=== PATIENT | female | born 1945 | race Caucasian/White ===

== ENCOUNTER → 2018-06-06 | Outpatient (CLI) | payer OTHER | LOC: RAD 11:28 | DX: Z12.31 Encounter for screening mammogram for malignant neoplasm of breast (principal) ==

== ENCOUNTER → 2019-06-14 | Outpatient (CLI) | payer OTHER | LOC: BC 10:10 | DX: Z12.31 Encounter for screening mammogram for malignant neoplasm of breast (principal) ==

== ENCOUNTER → 2020-02-05 | Outpatient (CLI) | payer OTHER ==
[~2020-02-05] MED LIST: ASA81BEC PO; AVAPRO300 MG PO; CLOPIDOGREL75 MG PO; LIPITOR40 MG PO; PRAVACHOL40 MG PO; PROAIR HFA8.5 GM INH; SUPER THERAVIT1 EACH PO; VITAMIN D310 MC4 PO
== END ==
LOC: SJCVCIMAG 12:47
PROVIDERS: ATTEND Internal Medicine Cardiovascular Disease
DX: I34.0 Nonrheumatic mitral (valve) insufficiency (principal); R00.1 Bradycardia, unspecified; I25.10 Atherosclerotic heart disease of native coronary artery without angina pectoris; I10 Essential (primary) hypertension; R94.31 Abnormal electrocardiogram [ECG] [EKG]; I71.4 Abdominal aortic aneurysm, without rupture; R94.39 Abnormal result of other cardiovascular function study; E78.00 Pure hypercholesterolemia, unspecified; Z79.82 Long term (current) use of aspirin; Z82.49 Family history of ischemic heart disease and other diseases of the circulatory system; Z79.899 Other long term (current) drug therapy; Z87.891 Personal history of nicotine dependence

== ENCOUNTER 2020-02-19 06:23 | Observation (INO) | payer OTHER ==
[~2020-02-19] VITALS: Ht 162.6 cm; Wt 69.4 kg
[2020-02-19] VITALS (14 sets, daily range): BP systolic 126–156; BP diastolic 59–74
[2020-02-19] MEDS ORDERED: ASA81BEC PO ×2 (06:56)
[2020-02-19] MEDS ORDERED: PROAIR HFA8.5 GM INH ×2 (06:56)
[2020-02-19] MEDS ORDERED: AVAPRO300 MG PO ×2 (06:57)
[2020-02-19] MEDS ORDERED: SUPER THERAVIT1 EACH PO ×2 (06:57)
[2020-02-19] MEDS ORDERED: VITAMIN D310 MC4 PO ×2 (06:57)
[2020-02-19] MEDS ORDERED: PRAVACHOL40 MG PO ×2 (06:58)
[2020-02-19 07:38] LABS: ABSOLUTE NEUTROPHILS 2.5 thou/uL (1.4-8.2); BASOPHILS 0.9 % (0.0-2.0); EOSINOPHILS 6.9 % (0.0-3.0); HEMATOCRIT 38.7 % (37.0-47.0); LYMPHOCYTES 35.9 % (24.0-44.0); MCH 30.3 pg (26.0-34.0); MCHC 33.7 g/dL (28.0-37.0); MCV 89.9 fL (80.0-100.0); MONOCYTES 10.4 % (1.0-8.0); PLATELET COUNT 175 thou/uL (150-400); POLYS 45.9 % (36.0-66.0); RBC 4.31 mil/uL (4.20-5.00); RDW 13.6 % (10.5-14.5); WBC 5.5 thou/uL (4.0-11.0)
[2020-02-19 07:49] LABS: CALCIUM 9.4 mg/dL (8.5-10.1); CREATININE 1.2 mg/dL (0.6-1.0); POTASSIUM 3.9 mmol/L (3.5-5.1)
--- NOTE | 2020-02-19 12:13 | NUR ---
ASSUMED CARE OF PT AT APPROX 1050 FROM GANG WORKER. ADMISSION ORDERS AND INSTRUCTIONS COMPLETE. R GROIN SITE, CDI W/O HEMATOMA OR BRUISING. PT A&OX4, NO C/O PAIN. AT BEDSIDE. BEDREST COMPLETE AT 1230. WILL CONTINUE TO MONITOR AND FOLLOW POC.
--- NOTE | 2020-02-19 16:06 | EKG ---
[facility] [place] [place] [address] ELECTROCARDIOGRAM REPORT Name: BIBIANA ROJAS Room #: 201-[facility] M.R.#: [id number] Admission: 02/19/20 Attend Phys: Murphy Hernandez MD, Discharge: Date of : 41 Report #: [id number] THIS REPORT FOR: cc: Cedric Sandy Steven F. DO Couchonnal, Luis F. MD ~ THIS REPORT FOR: //name// [facility] Test Date: 2020-02-19 Test Time: 07:20:40 Pat Name: BIBIANA ROJAS Department: Room: [facility] Gender: F Rfid Developer: ЕЛЕНА : 1945 Requested By: Murphy Hernandez Order Number: [id number] MD: Heber Galicia Measurements Intervals [place] Rate: 47 P: 45 UT: 175 QRS: 53 QRSD: 90 T: 33 QT: 456 QTc: 404 Interpretive Statements Sinus bradycardia No previous ECG available for comparison Electronically Signed On 02-19-2020 16:06:34 CDT by Heber Galicia [email or web address] <ELECTRONICALLY SIGNED> By: Heber Galicia MD 02/19/20 1606 9 9 Heber Galicia MD /EPI
--- NOTE | 2020-02-19 17:51 | NUR ---
ASSUMED CARE OF PT AT SHIFT CHANGE. ASSESSMENTS CHARTED. MEDS GIVEN PER SEP. PT A&OX4, NO C/O PAIN. GROIN SITE CDI, W/O HEMATOMA OR BRUISING. WAS AT BEDSIDE MOST OF DAY. WILL CONTINUE TO MONITOR AND FOLLOW POC.
[2020-02-20 04:42] LABS: HEMATOCRIT 35.2 % (37.0-47.0); HEMOGLOBIN 12.1 gm/dL (12.0-15.0); MCH 30.7 pg (26.0-34.0); MCHC 34.3 g/dL (28.0-37.0); MCV 89.4 fL (80.0-100.0); RBC 3.93 mil/uL (4.20-5.00); RDW 13.6 % (10.5-14.5)
[2020-02-20 04:59] VITALS: BP 131/62
[2020-02-20 05:10] LABS: ALBUMIN 3.3 g/dL (3.4-5.0); CALCIUM 8.6 mg/dL (8.5-10.1); POTASSIUM 4.2 mmol/L (3.5-5.1); TOTAL BILIRUBIN 0.6 mg/dL (0.2-1.0); TROPONIN-I 0.1 ng/mL (<0.06)
--- NOTE | 2020-02-20 05:10 | NUR ---
PATIENT IS PROGRESSING IN HER CARE PLAN. VITAL SIGNS STABLE WITH PATIENT HAVING NO COMPLAINTS OF PAIN OR NAUSEA. FULLY ORIENTED, PATIENT IS ABLE TO CALL APPROPRIATELY FOR NEEDS AND PARTICIPATE IN HER CARE PLAN. PATIENT EXHIBITED STABLE BRADYCARDIA REACHING THE MID 40'S WHILE SLEEPING. BREATHING STABLE EVIDENCED BY ASSESSMENTS AND SPOT OXYGENATION CHECKS. CATH SITE CLEAN, DRY, AND INTACT WITH PULSES STRONG AND EQUAL BILATERALLY. UP AD ISAAC THROUGHOUT SHIFT, PATIENT IS STRONG AND BALANCED WHEN AMBULATING. PROBABLE DISCHARGE HOME TODAY WHICH PATIENT IS ANXIOUS FOR. CONTINUE PLAN OF CARE.
[2020-02-20 07:25] VITALS: BP 143/65
[2020-02-20] MEDS ORDERED: LIPITOR40 MG PO ×2 (07:48)
[2020-02-20] MEDS ORDERED: CLOPIDOGREL75 MG PO ×2 (07:48)
[2020-02-20 08:46] VITALS: BP 143/65
--- NOTE | 2020-02-20 10:43 | NUR ---
PT CARE ASSUMED APPROX 0700. ASSESSMENT CHARTED. PT DENIES PAIN AND SOA. VSS. UP WITH STEADY GAIT. DISCHARGING AT THIS TIME. EDUCATION DONE WITH PT AND SPOUSE BY DR NELSON AND HIS PROMOTIONAL ADVERTISING ASSISTANT, ALONG WITH CV REHAB NURSE. EDUCATION REINFORCED BY THIS NURSE WELL DISCHARGE PAPERWORK REVIEW. BOTH PT AND SPOUSE DENY QUESTIONS OR CONCERNS REGARDING POST HOSPITAL CARES. IV OUT, TELE OFF. WILL ESCORT PT OUT TIMELY.
--- NOTE | 2020-02-20 15:04 | CATHLAB ---
[facility] [address] [place] [address] INVASIVE PROCEDURE REPORT Name: BIBIANA ROJAS Room #: 201-[facility] Roderick Vigil#: [id number] Admission: 02/19/20 Attend Phys: Murphy Hernandez MD, Discharge: 02/20/20 Date of : 41 Report #: [id number] THIS REPORT FOR: cc: Cedric Sandy Steven F. DO Mancuso, Gerald M. MD [facility] ~ APPROVED REPORT Study performed: 02/19/2020 08:13:46 Patient Details The patient is a 74 year-old female Event Personnel Murphy Hernandez Autocad Technician, Spencer Valdez RN RN, Jackelin Cerrato RTR Scrub, Horace Lovell RTR Monitor Procedures Performed Art Access - R femoral artery* Left Heart Cath w/or w/o Coronaries [id number] [facility] w/wo Plasty Single RCA 702031 71054 Initial Mod Sed Same Phys/QHP Gr5y 009886 86208 Mod Sed Same Phys/QHP Ea 599971 Hemostasis w/ Mynx Indication Chest pain Procedure Narrative The Right Groin^ was infiltrated with 1% Lidocaine subcutaneous anesthesia. A PINNACLE 6FR Sheath #[id number] sheath was inserted into the RFA^. Coronary angiography was performed using coronary diagnostic catheters. The right coronary system was accessed and visualized with a JR4 catheter. The left coronary system was accessed and visualized with a JL4 catheter. The left ventricle was accessed and visualized with a PIGTAIL catheter. Left ventriculogram was performed in WHARTON projection. An aortogram of the abdominal aorta was performed. Closure device was deployed with a 6 Fr MYNXGRIP 6/7F #[id number]. The patient tolerated the procedure well and there were no complications associated with the procedure. There was no hematoma. Intraoperative Conscious Sedation Sedation start time: 837 Case end Time: 938 Fentanyl 100 mcg Versed 2 mg [facility] [address] [place] [address] INVASIVE PROCEDURE REPORT Name: BIBIANA ROJAS Room #: 201-[facility] [place] [facility]#: [id number] Admission: 02/19/20 Attend Phys: Murphy Hernandez, Discharge: 02/20/20 Date of : 41 Report #: [id number] Fluoro Time: 7.43 minutes Dose: DAP 4451.00 cGycm2 586 mGy Contrast Type and Amount: Visipaque 95 ml Hemodynamics The aortic pressure is 122/58 mmHg with a mean of 81 mmHg. The left ventricular pressure is 130/3 mmHg with a mean of mmHg. The left ventricular end diastolic pressure is 12 mmHg. PCI Technique Lesion Percutaneous coronary intervention was performed on the mid right coronary artery. A VISTA 6FR JR 4 #[id number] Guide Catheter was used to engage the ostium. A Luge Wire .014 x 182CM #[id number] Interventional Guidewire was used to cross the lesion. BALLOON DILATION A Balloon catheter Sprinter OTW 2.5 x 15 #[id number] was inserted and inflated up to 10.00atm for 58seconds. Additional Inflation: 14.00atm for 20seconds. STENT DEPLOYMENT A drug-eluting stent RESOLUTE BEN OTW 2.75 X 22 #[id number] was inserted and inflated up to 10.00atm for 32seconds. Additional Inflation: 20.00atm for 32seconds. POST STENT DEPLOYMENT BALLOON DILATION A Balloon catheter TREK NC OTW 3.0 X 12 #[id number] was inserted and inflated up to 16.00atm for 29seconds. Additional Inflation: 22.00atm for 36seconds. Conclusion #1. Successful PTCA stent of tandem high-grade lesions in the proximal mid dominant RCA. Placement of a 2 seven 5 x 22 resolute [place] postdilated to 3.1 mm in size ANA grade III flow dominant vessel. #2 left main free of disease giving rise to LAD and circumflex #3 the LAD is an eccentric proximal 70 to 75% lesion but a type I LAD that stops short of the apex diffusely diseased distally relatively small in caliber. Will follow. #4 circumflex OM nondominant but moderate in distribution 30 to 40% proximal lesion small first OM and a distal OM branch patent #5 normal ventricular size and systolic function EF 60% #6 abdominal aortic aneurysm predominantly infrarenal aortic ectasia is noted iliac arteries are not involved mild disease renal arteries mildly diseased will follow noninvasively. [facility] [address] [place] [address] INVASIVE PROCEDURE REPORT Name: BIBIANA ROJAS Room #: 201-P [facility] IN M.R.#: [id number] Admission: 02/19/20 Attend Phys: Murphy Hernandez, Discharge: 02/20/20 Date of : 41 Report #: [id number] Recommendations and plan: Continue aggressive risk factor modification dual antiplatelet therapy initiated for coronary stent. To CCU follow coronary stent protocol. <ELECTRONICALLY SIGNED> By: Murphy Hernandez MD, FAC 02/20/20 1504 1504 1504 Murphy Hernandez MD, FACC /INF
--- NOTE | 2020-02-21 07:59 | EKG ---
[facility] [place] [address] ELECTROCARDIOGRAM REPORT Name: BIBIANA ROJAS Room #: 201-[facility] M.R.#: [id number] Admission: 02/19/20 Attend Phys: Murphy Hernandez MD, Discharge: 02/20/20 Date of : 41 Report #: [id number] THIS REPORT FOR: cc: Cedric Sandy,Bryan Montaño MD [facility] ~ THIS REPORT FOR: //name// [facility] Test Date: 2020-02-20 Test Time: 07:12:27 Pat Name: BIBIANA ROJAS Department: Room: 201 Gender: F Punch Box Tender: ЕЛЕНА : 1945 Requested By: Murphy Hernandez Order Number: [id number] MD: Bryan Wren Measurements Intervals [place] Rate: 48 P: 83 CT: 169 QRS: 66 QRSD: 86 T: 49 QT: 449 QTc: 402 Interpretive Statements Sinus bradycardia Compared to ECG 02/19/2020 07:20:40 No significant changes Electronically Signed On 02-21-2020 7:58:46 CDT by Bryan Wren [email or web address] <ELECTRONICALLY SIGNED> By: Bryan Wren MD, [facility] 02/21/20 0758 0712 0712 Bryan Wren MD, [facility] /EPI
== END 2020-02-20 10:57 | disposition home or self-care (01) ==
LOC: CATH 06:23 → 2N 10:53 → CATH 12:23 → 2N 02-20 10:57
PROVIDERS: ADMIT Internal Medicine Cardiovascular Disease; ATTEND Internal Medicine Cardiovascular Disease
DX: I25.10 Atherosclerotic heart disease of native coronary artery without angina pectoris (principal); I71.4 Abdominal aortic aneurysm, without rupture; I10 Essential (primary) hypertension; E78.5 Hyperlipidemia, unspecified; Z79.82 Long term (current) use of aspirin; Z79.899 Other long term (current) drug therapy

== ENCOUNTER → 2020-05-23 | Outpatient (CLI) | payer OTHER | LOC: SJCVCIMAG 09:13 | PROVIDERS: ATTEND Internal Medicine Cardiovascular Disease | DX: I71.4 Abdominal aortic aneurysm, without rupture (principal); R00.1 Bradycardia, unspecified; I25.10 Atherosclerotic heart disease of native coronary artery without angina pectoris; I10 Essential (primary) hypertension; E78.01 Familial hypercholesterolemia; Z79.82 Long term (current) use of aspirin; Z79.899 Other long term (current) drug therapy; Z87.891 Personal history of nicotine dependence ==

== ENCOUNTER → 2020-11-20 | Outpatient (CLI) | payer OTHER | LOC: SJCVCIMAG 07:45 | PROVIDERS: ATTEND Internal Medicine Cardiovascular Disease | DX: R00.1 Bradycardia, unspecified (principal); I25.10 Atherosclerotic heart disease of native coronary artery without angina pectoris; Z95.5 Presence of coronary angioplasty implant and graft; Z79.82 Long term (current) use of aspirin; Z79.899 Other long term (current) drug therapy ==

== ENCOUNTER → 2021-05-21 | Outpatient (CLI) | payer OTHER | LOC: SJCVC 09:44 | PROVIDERS: ATTEND Internal Medicine Cardiovascular Disease | DX: R94.31 Abnormal electrocardiogram [ECG] [EKG] (principal); I48.91 Unspecified atrial fibrillation; I25.10 Atherosclerotic heart disease of native coronary artery without angina pectoris; I10 Essential (primary) hypertension; E78.00 Pure hypercholesterolemia, unspecified; I71.4 Abdominal aortic aneurysm, without rupture; R00.1 Bradycardia, unspecified; Z87.891 Personal history of nicotine dependence; Z79.82 Long term (current) use of aspirin; Z79.899 Other long term (current) drug therapy; Z82.49 Family history of ischemic heart disease and other diseases of the circulatory system ==